=== PATIENT | male | born 1935 | race Caucasian/White ===

== ENCOUNTER 2019-08-02 12:13 | Emergency (ER) | payer MEDICARE ==
[~2019-08-02] VITALS: Ht 175.3 cm; Wt 93.0 kg
[~2019-08-02 12:13] MED LIST: ASCO500 PO; ASPI325 PO; CHOL10002 PO; CINNAMON 500MG PO; CINNAMON PO; CLOP75 PO; FLAX PO; GARLIC PO; GRAPESEED PO; HYDACE5 PO; METO25 PO; MOM PO; MULVIT PO; NIAC500ER PO; Norco 5-325 Ta1 EACH PO; OMEG1CAP30 PO; POTASSIUM 99MG PO; PROBIOTIC PO; RED YEAST RICE 600MG PO; SIMV10 PO; SOY LECITHIN PO; STOOL SOFTENER PO; TOCO400 PO; UBID100 PO; VITAMIN B 50 PO; [UNRECOGNIZED DRUG - OTHER]; [UNRECOGNIZED DRUG - OTHER] PO
[2019-08-02 13:55] LABS: BASOPHILS ABSOLUTE AUTO 0.06 K/mm3 (0.00-0.23); BASOPHILS PERCENT AUTO 1 % (0-2); EOSINOPHILS ABSOLUTE AUTO 0.15 K/mm3 (0.00-0.68); EOSINOPHILS PERCENT AUTO 2 % (0-6); Hematocrit 46.4 % (37.0-53.0); IMMATURE GRAN ABSOLUTE AUTO 0.03 K/mm3 (0.00-0.10); IMMATURE GRAN PERCENT AUTO 0 % (0-1); LYMPHOCYTES ABSOLUTE AUTO 1.72 K/mm3 (0.84-5.20); LYMPHOCYTES PERCENT AUTO 21 % (21-46); MONOCYTES ABSOLUTE AUTO 0.91 K/mm3 (0.16-1.47); MONOCYTES PERCENT AUTO 11 % (4-13); Mean Corpuscular HGB 28.7 pg (26.0-34.0); Mean Corpuscular HGB Conc 32.3 g/dL (31.5-36.5); Mean Corpuscular Volume 89 fL (80-100); Mean Platelet Volume 9.1 fL (9.1-12.4); NEUTROPHILS PERCENT AUTO 65 % (41-73); Platelet Count 249 K/mm3 (150-400); RDW Coefficient Variation 13.7 % (11.7-14.2); RDW Standard Deviation 44.6 fL (35.1-46.3); Red Blood Cell Count 5.22 M/mm3 (4.30-5.90); White Blood Cell Count 8.17 K/mm3 (4.00-11.30)
[2019-08-02 14:18] LABS: Alanine Aminotransfer (ALT/SGP 55 U/L (12-78); Albumin, Blood 3.6 g/dL (3.4-5.0); Albumin/Globulin Ratio 0.9 (0.8-1.8); Alk Phos 70 U/L (50-136); Anion Gap 5 mmol/L (6-16); Aspartate Aminotrans (AST/SGOT 49 U/L (12-37); Bilirubin, Total 0.5 mg/dL (0.1-1.0); Blood Urea Nitrogen 20 mg/dL (8-24); Bun/Creatinine Ratio 21.9 (12.0-20.0); CO2, Blood 27 mmol/L (21-32); Calcium, Blood 9.1 mg/dL (8.5-10.1); Chloride, Blood 105 mmol/L (98-108); Creatinine, Blood 0.91 mg/dL (0.60-1.20); Globulin, Blood 4.1 g/dL (2.2-4.0); Glomerular Filtration Rate >60 (60-); Glucose, Blood 83 mg/dL (70-99); Potassium, Blood 4.6 mmol/L (3.5-5.5); Sodium, Blood 137 mmol/L (136-145); Total Protein, Blood 7.7 g/dL (6.4-8.2); Troponin I <0.015 ng/mL (0.000-0.040)
[2019-08-02 15:13] LABS: Source, Urine Clean Catch
[2019-08-02 15:16] LABS: Bilirubin, Urine Neg (Neg); Blood, Urine Neg (Neg); Glucose Qualitative, Urine Neg (Neg); Ketones, Urine Neg (Neg); Leukocyte Esterase, Urine Neg (Neg); Nitrite, Urine Neg (Neg); Protein, Urine Neg (Neg); Specific Gravity, Urine 1.015 (1.003-1.022); Urobilinogen, Urine NORM (Normal)
[2019-08-02 15:28] LABS: Appearance, Urine Clear (Clear); Color, Urine Yellow (P-Yellow)
== END 2019-08-02 15:44 | disposition home or self-care (01) ==
LOC: ER 12:13
PROVIDERS: Physician Assistant
DX: I95.9 Hypotension, unspecified (principal); M25.551 Pain in right hip; F03.90 Unspecified dementia, unspecified severity, without behavioral disturbance, psychotic disturbance, mood disturbance, and anxiety; Z96.641 Presence of right artificial hip joint
CPT/HCPCS: 36415; 73502; 80053; 81003; 84484; 85025; 93005; 93010; 99285-25

== ENCOUNTER 2019-12-06 19:21 | Inpatient (IN) | payer MEDICARE ==
[~2019-12-06] VITALS: Ht 175.3 cm; Wt 97.3 kg
[~2019-12-06 19:21] MED LIST changes: -ASPI325 PO; +Aspir 8181 MG PO
[2019-12-06 20:51] LABS: BASOPHILS ABSOLUTE AUTO 0.05 K/mm3 (0.00-0.23); BASOPHILS PERCENT AUTO 0 % (0-2); EOSINOPHILS PERCENT AUTO 0 % (0-6); Hematocrit 48.6 % (37.0-53.0); Hemoglobin 16.1 g/dL (13.5-17.5); IMMATURE GRAN ABSOLUTE AUTO 0.07 K/mm3 (0.00-0.10); IMMATURE GRAN PERCENT AUTO 0 % (0-1); LYMPHOCYTES ABSOLUTE AUTO 1.65 K/mm3 (0.84-5.20); LYMPHOCYTES PERCENT AUTO 9 % (21-46); MONOCYTES ABSOLUTE AUTO 2.17 K/mm3 (0.16-1.47); MONOCYTES PERCENT AUTO 12 % (4-13); Mean Corpuscular HGB 28.9 pg (26.0-34.0); Mean Corpuscular HGB Conc 33.1 g/dL (31.5-36.5); Mean Corpuscular Volume 87 fL (80-100); Mean Platelet Volume 9.3 fL (9.1-12.4); NEUTROPHILS ABSOLUTE AUTO 13.83 K/mm3 (1.96-9.15); NEUTROPHILS PERCENT AUTO 78 % (41-73); Platelet Count 225 K/mm3 (150-400); RDW Coefficient Variation 13.4 % (11.7-14.2); RDW Standard Deviation 43.2 fL (35.1-46.3); Red Blood Cell Count 5.57 M/mm3 (4.30-5.90); White Blood Cell Count 17.77 K/mm3 (4.00-11.30)
[2019-12-06 21:09] LABS: Alanine Aminotransfer (ALT/SGP 109 U/L (12-78); Albumin, Blood 3.5 g/dL (3.4-5.0); Albumin/Globulin Ratio 0.8 (0.8-1.8); Alk Phos 86 U/L (50-136); Anion Gap 8 mmol/L (6-16); Aspartate Aminotrans (AST/SGOT 47 U/L (12-37); Bilirubin, Total 0.9 mg/dL (0.1-1.0); Blood Urea Nitrogen 17 mg/dL (8-24); Bun/Creatinine Ratio 21.4 (12.0-20.0); CO2, Blood 24 mmol/L (21-32); Calcium, Blood 9.5 mg/dL (8.5-10.1); Chloride, Blood 106 mmol/L (98-108); Creatinine, Blood 0.79 mg/dL (0.60-1.20); Globulin, Blood 4.2 g/dL (2.2-4.0); Glomerular Filtration Rate >60 (60-); Glucose, Blood 147 mg/dL (70-99); Potassium, Blood 4.3 mmol/L (3.5-5.5); Sodium, Blood 138 mmol/L (136-145); Total Protein, Blood 7.7 g/dL (6.4-8.2); Troponin I <0.015 ng/mL (0.000-0.040)
[2019-12-06 23:17] LABS: Source, Urine Clean Catch
[2019-12-06 23:22] LABS: Bilirubin, Urine Neg (Neg); Blood, Urine Neg (Neg); Glucose Qualitative, Urine 2+ (Neg); Ketones, Urine 1+ (Neg); Leukocyte Esterase, Urine 1+ (Neg); Nitrite, Urine Neg (Neg); Protein, Urine 2+ (Neg); Urobilinogen, Urine 1+ (Normal)
[2019-12-06 23:27] LABS: Appearance, Urine Clear (Clear); Color, Urine Amber (P-Yellow)
[2019-12-06 23:40] LABS: Bacteria Few /hpf; Mucus Mod (0-Heavy); Squamous Epithelial Cells Few /hpf (Few)
[2019-12-07 00:20] LABS: International Normalized Ratio 0.97; Prothrombin Time Results 10.4 Sec (9.7-11.5)
[2019-12-07 05:10] LABS: BASOPHILS ABSOLUTE AUTO 0.05 K/mm3 (0.00-0.23); BASOPHILS PERCENT AUTO 0 % (0-2); EOSINOPHILS PERCENT AUTO 0 % (0-6); Hematocrit 44.4 % (37.0-53.0); Hemoglobin 14.7 g/dL (13.5-17.5); IMMATURE GRAN ABSOLUTE AUTO 0.05 K/mm3 (0.00-0.10); IMMATURE GRAN PERCENT AUTO 0 % (0-1); LYMPHOCYTES ABSOLUTE AUTO 1.97 K/mm3 (0.84-5.20); LYMPHOCYTES PERCENT AUTO 12 % (21-46); MONOCYTES ABSOLUTE AUTO 2.04 K/mm3 (0.16-1.47); MONOCYTES PERCENT AUTO 12 % (4-13); Mean Corpuscular HGB 28.7 pg (26.0-34.0); Mean Corpuscular HGB Conc 33.1 g/dL (31.5-36.5); Mean Corpuscular Volume 87 fL (80-100); Mean Platelet Volume 9.3 fL (9.1-12.4); NEUTROPHILS ABSOLUTE AUTO 12.53 K/mm3 (1.96-9.15); NEUTROPHILS PERCENT AUTO 75 % (41-73); Platelet Count 199 K/mm3 (150-400); RDW Coefficient Variation 13.3 % (11.7-14.2); Red Blood Cell Count 5.12 M/mm3 (4.30-5.90); White Blood Cell Count 16.64 K/mm3 (4.00-11.30)
--- NOTE | 2019-12-07 05:20 | NUR ---
SHIFT SUMMARY PT ARRIVED TO UNIT FROM ED VIA STRETCHER @ 0300. PT TRANSFERRED 2 PERSON ASSIST TO STANDING SCALE THEN TO BED WITH NEEDED DIRECTION. PT'S IS AT BEDSIDE. PT IS A&O TO SELF. ONCE IN BED PT SLEPT, WHILE HELPED ANSWER QUESTIONS DURING ADMISSION PROCESS. PT IS CURRENTLY LAYING IN BED WITH EYES CLOSED, EVEN AND UNLABORED RESPIRATIONS ON 3.5 L NC. BED IN LOWERED POSITION WITH BED ALARM ON. PT'S IS IN RECLINER NEXT TO BED, WITH CALL LIGHT AND PERSONAL ITEMS WITHIN REACH. NO APPARENT NEEDS OR DISTRESS AT THIS TIME, WILL CONTINUE TO MONITOR UNTIL REPORT GIVEN TO DAY RN.
[2019-12-07 05:29] LABS: Alanine Aminotransfer (ALT/SGP 90 U/L (12-78); Albumin, Blood 2.8 g/dL (3.4-5.0); Albumin/Globulin Ratio 0.8 (0.8-1.8); Alk Phos 74 U/L (50-136); Anion Gap 6 mmol/L (6-16); Aspartate Aminotrans (AST/SGOT 51 U/L (12-37); Bilirubin, Total 1.1 mg/dL (0.1-1.0); Blood Urea Nitrogen 15 mg/dL (8-24); CO2, Blood 25 mmol/L (21-32); Calcium, Blood 8.5 mg/dL (8.5-10.1); Chloride, Blood 108 mmol/L (98-108); Creatinine, Blood 0.71 mg/dL (0.60-1.20); Globulin, Blood 3.6 g/dL (2.2-4.0); Glomerular Filtration Rate >60 (60-); Glucose, Blood 132 mg/dL (70-99); Sodium, Blood 139 mmol/L (136-145); Total Protein, Blood 6.4 g/dL (6.4-8.2)
--- NOTE | 2019-12-07 13:24 | NUR ---
History, Chart, Medications and Allergies reviewed before start of procedure. Patient confirms NPO status and agrees with scheduled surgery.Transport to Day surgery using 3L O2/NC, which was what the patinet was on in his room. biox 97%.
--- NOTE | 2019-12-07 14:00 | NUR ---
1350- AUDITORY WHEEZING NOTED WELL EXP. WHEEZING AUSCULTATED THROUGHOUT LUNGS. DUONEB TO BE GIVEN PER DR. FOLEY.
--- NOTE | 2019-12-07 14:18 | NUR ---
TOOK OVER PATIENT CARE AFTER REPORT WAS RECEIVED.
--- NOTE | 2019-12-07 19:00 | NUR ---
ASSUMED PT CARE BEDSIDE REPORT WITH CHANDANA OSPINA. PT TO ROOM FROM PACU AT 1850. PT CONFUSED, NOT COOPERATIVE WITH CARE, PULLING AT LINES/DRAINS/TUBING/DRESSINGS. PT ARRIVES ON NRB AT 15L, SWITCHED TO 7L PER OXYMIZER, PT SEEMED TO SETTLE SOME. PT ARRIVES WITH BED SOAKED IN URINE. PT ROLLED SIDE TO SIDE, PT CLEANED AND NEW LINENS PLACED. TEMP PROBE RILEY PLACED FOR STRICT I&O COUNT PLACED (PT TO BE DIURESED). PT HAS 20G TO RIGHT FA. DRESSING C/D/I, SITE WNL. LAP SITES TO ABD WITH STERI STRIPS NOTED, SMALL AMOUNT OF DRAINAGE NOTED. RAFFI DRAIN TO RIGHT ABD, BULB COMPRESSED. BULKY DRESSING TO DRAIN SITE. PT MOVES ALL EXT FREELY. LUNG SOUNDS COARSE THROUGHOUT. BP STABLE. BED ALARM ON, BED LOW, CALL LIGHT IN REACH. SEE FULL SHIFT ASSESSMENT.
[2019-12-08 03:05] LABS: Source, Urine Catheter
[2019-12-08 03:07] LABS: Appearance, Urine Clear (Clear); Bilirubin, Urine Neg (Neg); Blood, Urine 4+ (Neg); Color, Urine Amber (P-Yellow); Glucose Qualitative, Urine Neg (Neg); Ketones, Urine Neg (Neg); Leukocyte Esterase, Urine Neg (Neg); Nitrite, Urine Neg (Neg); Protein, Urine 2+ (Neg); Urobilinogen, Urine 1+ (Normal)
[2019-12-08 03:13] LABS: Bacteria Mod /hpf; Mucus Light (0-Heavy); Squamous Epithelial Cells Not Seen /hpf (Few)
--- NOTE | 2019-12-08 06:10 | NUR ---
SHIFT SUMMARY PT HAD DECENT SHIFT. CAME TO ICU FROM PACU CONFUSED AND AGITATED ON 15L NRB. PT REQUIRED RESTRAINTS FOR A FEW HRS. MENTATION CLEARED AROUND MIDNIGHT. PT ALERT TO SELF, NOW COOPERATIVE AND PLEASANT. PT HAS NEW 18G TO LEFT AC WITH NS INFUSING AT 100ML/HR. SL 20G TO RIGHT FA. DRESSINGS C/D/I, SITES TO BOTH IVS WNL. PT POST OP DAY 1 LAP AUGUSTO, LAP SITES HAVE STERI STRIPS INTACT, SCANT DRAINAGE NOTED. PT HAS RAFFI DRAIN TO RIGHT ABD WITH BULKY DRESSING IN PLACE. SMALL AMOUNT OF DRAINAGE TO DRESSING. BULB COMPRESSED. BRUISING TO ABD. ABD DISTENDED AND FIRM, BOWEL TONES HYPOACTIVE. TEMP PROBE RILEY DRAINING CLEAR NICOLA URINE. LUNG SOUNDS TO UPPER LOBES CLEAR. COARSE TO BASES. PT ON 5L O2 PER OXYMIZER, MEETA WELL. PT ABLE TO COUGH AND DEEP BREATHE. PT NOW AFEBRILE. DISCUSSED TEMP OF 100.6 AND LACK OF LAB ORDERS WITH PROVIDER. NO ORDERS RECEIVED UNLESS TEMP REACHED 101. TEMP MAX 100.9. HR SR 80'S, BP STABLE. PT ABLE TO MOVE ALL EXTREMITIES. CALL LIGHT IN REACH. BED LOW. WILL REPORT TO ONCOMING SHIFT.
--- NOTE | 2019-12-08 07:30 | NUR ---
ASSUMED CARE: REPORT RECEIVED FROM JOELLE Flowers RN. ASSUMED CARE OF THIS PT AT APPROX 0700. ON ASSESSMENT, THE PT IS RESTING QUIETLY. HE AWAKENS EASILY TO VERBAL STIMULUS & IS ABLE TO TELL THIS RN HIS NAME, & THAT WE ARE IN [place], OR. PER REPORT, THIS IS AN IMPROVEMENT IN MENTATION. THE PT WAS REMOVED FROM RESTRAINTS AT APPROX 0000 & IS CURRENTLY COOPERATIVE W/ CARE, NOT PULLING AT ANY LINES OR TUBES. LS ARE DIM/ COARSE IN BASES, PT ON 4L OXYMIZER AT THIS TIME W/ O2 SATS > 92%. TITRATION DOWN TOLERATED, DOES NOT WEAR HOME O2. MONITOR SHOWS SR W/ PACs & PVCs, HR 70-80s. TEMP RILEY PATENT/ DRAINING DARK YELLOW URINE. ABDOMEN W/ LAP SITES x3, STERI STRIPS INTACT. RAFFI DRAIN TO RLQ. ABDOMEN IS DISTENDED, FIRM & TENDER TO PALPATION, PER REPORT THIS IS UNCHANGED SINCE PT's RETURN FROM THE OR. PT STS HAVING A "ROUND" BELLY AT BASELINE. SKIN CONDITION OVERALL CDI, SOME BRUISING NOTED SURROUNDING SURGICAL SITES. WILL CONTINUE TO MONITOR & UPDATE NEEDED.
--- NOTE | 2019-12-08 09:40 | NUR ---
UPDATE / DR TIAN: PT IS INCREASINGLY CONFUSED & AGITATED, ASKING FOR JARED, HIS . HE IS NOW PARANOID OF STAFF & INSISTS THAT ALL STAFF MEMBERS ARE "PHONY" & ARE TRYING TO HURT/ KILL HIM. THIS RN HAS CALLED JARED TO SEE IF SHE WILL BE COMING TO SEE THE PT, PER HIS REQUEST. SHE IS LEAVING THEIR HOME IN [place] & WILL BE AT THE FACILITY SOON. PROVIDER AT BEDSIDE TO EVAL PT. JARED, PT's SPOUSE, AT BEDSIDE DURING THIS TIME WELL. SHE HAS ORDERED LABWORK & A CXR FOR THIS MORNING. THERE IS CONVERSATION FROM THE PT's ABOUT A POSSIBLE COBRA TX TO [facility] FOR ERCP PER DR JUNIOR. DR GILMORE STS THAT IF THIS WILL NOT BE HAPPENING TODAY, THAT THE PT MAY BE SURGICAL STATUS. WILL GET CLARIFICATION ON THIS FROM DR JUNIOR.
[2019-12-08 10:14] LABS: BASOPHILS ABSOLUTE AUTO 0.02 K/mm3 (0.00-0.23); BASOPHILS PERCENT AUTO 0 % (0-2); EOSINOPHILS PERCENT AUTO 0 % (0-6); Hematocrit 43.9 % (37.0-53.0); Hemoglobin 14.5 g/dL (13.5-17.5); IMMATURE GRAN ABSOLUTE AUTO 0.04 K/mm3 (0.00-0.10); IMMATURE GRAN PERCENT AUTO 0 % (0-1); LYMPHOCYTES ABSOLUTE AUTO 1.53 K/mm3 (0.84-5.20); LYMPHOCYTES PERCENT AUTO 10 % (21-46); MONOCYTES ABSOLUTE AUTO 1.69 K/mm3 (0.16-1.47); MONOCYTES PERCENT AUTO 11 % (4-13); Mean Corpuscular HGB 28.9 pg (26.0-34.0); Mean Corpuscular Volume 88 fL (80-100); Mean Platelet Volume 9.2 fL (9.1-12.4); NEUTROPHILS ABSOLUTE AUTO 11.76 K/mm3 (1.96-9.15); NEUTROPHILS PERCENT AUTO 78 % (41-73); Platelet Count 181 K/mm3 (150-400); RDW Coefficient Variation 13.6 % (11.7-14.2); RDW Standard Deviation 43.7 fL (35.1-46.3); Red Blood Cell Count 5.01 M/mm3 (4.30-5.90); White Blood Cell Count 15.04 K/mm3 (4.00-11.30)
[2019-12-08 10:29] LABS: Alanine Aminotransfer (ALT/SGP 86 U/L (12-78); Albumin, Blood 2.5 g/dL (3.4-5.0); Albumin/Globulin Ratio 0.7 (0.8-1.8); Alk Phos 66 U/L (50-136); Anion Gap 5 mmol/L (6-16); Aspartate Aminotrans (AST/SGOT 51 U/L (12-37); Bilirubin, Total 0.7 mg/dL (0.1-1.0); Blood Urea Nitrogen 15 mg/dL (8-24); Bun/Creatinine Ratio 21.4 (12.0-20.0); CO2, Blood 27 mmol/L (21-32); Chloride, Blood 108 mmol/L (98-108); Globulin, Blood 3.6 g/dL (2.2-4.0); Glomerular Filtration Rate >60 (60-); Glucose, Blood 125 mg/dL (70-99); Potassium, Blood 4.2 mmol/L (3.5-5.5); Sodium, Blood 140 mmol/L (136-145); Total Protein, Blood 6.1 g/dL (6.4-8.2)
--- NOTE | 2019-12-08 13:28 | NUR ---
DR JUNIOR: PROVIDER AT BEDSIDE TO DISCUSS POC W/ PT & PT's . PLAN IS FOR COBRA TX TO [facility] FOR ERCP. HE HAS PLACED A CALL TO GI AT THAT FACILITY & IS AWAITING RETURN CALL. IF THE PT CANNOT BE TRANSFERRED TODAY, THEN HE CAN BE MADE SURGICAL STATUS & BE GIVEN CLEAR LIQUIDS. OTHERWISE, THE PT SHOULD BE ALLOWED ONLY MOIST SWABS & REMAIN NPO UNTIL DETERMINATION HAS BEEN MADE. PROVIDER STS THAT HE WILL CALL & UPDATE THIS RN ONCE HE KNOWS MORE.
--- NOTE | 2019-12-08 15:45 | NUR ---
UPDATE: CALL FROM DR JUNIOR TO NOTIFY THIS RN THAT THE PT HAS AN ACCEPTING HOSPITALIST PROVIDER. PLAN IS FOR THE COBRA TX TO OCCUR TODAY & ERCP TO OCCUR TOMORROW. BECAUSE OF THIS, THE PT IS OKAY TO HAVE CLEAR LIQUIDS AT THIS TIME. ORDERS PLACED.
--- NOTE | 2019-12-08 15:47 | NUR ---
BED ASSIGNMENT: [facility] HAS CALLED TO NOTIFY THAT PT's BED ASSIGNMENT IS RM #[id number] AT [facility]. REPORT SHOULD BE CALLED TO ANAI JOE, WHEN ABLE
--- NOTE | 2019-12-08 18:13 | NUR ---
COBRA TRANSFER: REPORT HAS BEEN CALLED TO ANAI JOE TO ASSUME CARE AT [facility] AT APPROX 1700. TRANSPORT HAS BEEN CONTACTED, THEY PLANNED TO ARRIVE AT 1645 & HAD NOT YET ARRIVED AT TIME OF REPORT. THEY STATE THAT TRANSPORT HAS BEEN DELAYED R/T EMERGENCY CALLS BUT THAT THEY WILL ARRIVE RIKA. THIS INFORMATION HAS BEEN SHARED W/ JARED Eng, THE PT's SPOUSE. TRANSPORT HAS ARRIVED AT 1740 & THE PT HAS BEEN TAKEN OUT VIA [facility], W/ ALL BELONGINGS & TRANSPORT PACKET. PT OUT OF FACILITY AT 1750. THIS RN HAS CALLED JARED, SPOUSE, & ANAI JOE TO ASSUME CARE, TO UPDATE ON PT's TIME OF DEPARTURE.
== END 2019-12-08 17:50 | disposition short-term general hospital (02) | DRG 417 ==
LOC: ER 19:21 → MEDS 19:22 → ER 12-07 02:50 → MEDS 12-07 03:30 → SURS 12-07 16:25 → ICUW 12-07 18:23
PROVIDERS: Emergency Medicine; Hospitalist; Nurse Practitioner Acute Care; Surgery; ADMIT Family Medicine
PROC: BF131ZZ Fluoroscopy of Gallbladder and Bile Ducts using Low Osmolar Contrast (ICD-10-PCS; 2019-12-07)
PROC: 0FT44ZZ Resection of Gallbladder, Percutaneous Endoscopic Approach (ICD-10-PCS; principal; 2019-12-07 14:30)
DX: K80.00 Calculus of gallbladder with acute cholecystitis without obstruction (principal); I60.9 Nontraumatic subarachnoid hemorrhage, unspecified; J96.01 Acute respiratory failure with hypoxia; I25.10 Atherosclerotic heart disease of native coronary artery without angina pectoris; J44.9 Chronic obstructive pulmonary disease, unspecified; F17.210 Nicotine dependence, cigarettes, uncomplicated; G30.9 Alzheimer's disease, unspecified; F02.80 Dementia in other diseases classified elsewhere, unspecified severity, without behavioral disturbance, psychotic disturbance, mood disturbance, and anxiety; Z79.82 Long term (current) use of aspirin; Z20.828 Contact with and (suspected) exposure to other viral communicable diseases
CPT/HCPCS: 36415; 70450; 71045; 74300; 76705; 80053; 81001; 83690; 84484; 85025; 85610; 85730; 87086; 93005; 93010; 94640; 96365; 96366; 96368; 97166; 97530; 97535; 99285-25; C1729; G0378; J0696; J1100; J1940; J2370; J2405; J2543; J2704; J2710; J3010; J7030; J7120; U0003

== ENCOUNTER → 2021-06-23 | Outpatient (CLI) | payer MEDICARE | END | disposition home or self-care (01) | LOC: LAB 11:10 → LAB SHORT 11:10 | DX: R82.79 Other abnormal findings on microbiological examination of urine (principal) | CPT/HCPCS: 87086 ==

== ENCOUNTER 2021-09-19 12:23 | Emergency (ER) | payer MEDICARE ==
[~2021-09-19] VITALS: Ht 177.8 cm; Wt 95.2 kg
[~2021-09-19 12:23] MED LIST changes: +CEPH500 PO; +DONEPEZIL HCL10 MG PO; +LEVSOD25 PO
== END 2021-09-19 16:43 | disposition home or self-care (01) ==
LOC: ER 12:23
DX: Z48.815 Encounter for surgical aftercare following surgery on the digestive system (principal); F17.200 Nicotine dependence, unspecified, uncomplicated; Z79.899 Other long term (current) drug therapy; Z79.82 Long term (current) use of aspirin
CPT/HCPCS: 74177; Q9967

== ENCOUNTER 2023-01-25 03:55 | Inpatient (IN) | payer OTHER ==
[~2023-01-25] VITALS: Ht 185.4 cm; Wt 93.0 kg
[~2023-01-25 03:55] MED LIST changes: +Acetaminophen650 M1 PO; +FLONASE ALLERG9.9 ML; +ROSUVASTATIN CAL5 MG PO
[2023-01-25 04:27] LABS: BASOPHILS ABSOLUTE AUTO 0.04 K/mm3 (0.00-0.23); BASOPHILS PERCENT AUTO 0 % (0-2); EOSINOPHILS PERCENT AUTO 0 % (0-6); Hematocrit 44.8 % (37.0-53.0); Hemoglobin 14.8 g/dL (13.5-17.5); IMMATURE GRAN ABSOLUTE AUTO 0.05 K/mm3 (0.00-0.10); IMMATURE GRAN PERCENT AUTO 0 % (0-1); LYMPHOCYTES ABSOLUTE AUTO 1.59 K/mm3 (0.84-5.20); LYMPHOCYTES PERCENT AUTO 10 % (21-46); MONOCYTES ABSOLUTE AUTO 1.19 K/mm3 (0.16-1.47); MONOCYTES PERCENT AUTO 7 % (4-13); Mean Corpuscular HGB 29.5 pg (26.0-34.0); Mean Corpuscular Volume 89 fL (80-100); Mean Platelet Volume 9.7 fL (9.1-12.4); NEUTROPHILS ABSOLUTE AUTO 13.81 K/mm3 (1.96-9.15); NEUTROPHILS PERCENT AUTO 83 % (41-73); Platelet Count 178 K/mm3 (150-400); RDW Coefficient Variation 13.2 % (11.7-14.2); Red Blood Cell Count 5.02 M/mm3 (4.30-5.90); White Blood Cell Count 16.68 K/mm3 (4.00-11.30)
[2023-01-25 04:47] LABS: Albumin, Blood 3.1 g/dL (3.4-5.0); Bilirubin, Total 0.5 mg/dL (0.1-1.0); Bun/Creatinine Ratio 33.1 (12.0-20.0); Calcium, Blood 8.1 mg/dL (8.5-10.1); Creatinine, Blood 0.88 mg/dL (0.60-1.20); Globulin, Blood 3.2 g/dL (2.2-4.0); Potassium, Blood 4.3 mmol/L (3.5-5.5); Total Protein, Blood 6.3 g/dL (6.4-8.2)
[2023-01-25] MEDS ORDERED: MELA3 PO (05:13)
[2023-01-25] MEDS ORDERED: Norco 5-325 Ta1 EACH PO (05:13)
[2023-01-25 05:33] LABS: Source, Urine Straight Cath
[2023-01-25 05:52] LABS: Bilirubin, Urine Neg (Neg); Blood, Urine Neg (Neg); Glucose Qualitative, Urine Neg (Neg); Ketones, Urine 1+ (Neg); Leukocyte Esterase, Urine 1+ (Neg); Nitrite, Urine Neg (Neg); Protein, Urine 2+ (Neg); Specific Gravity, Urine 1.025 (1.003-1.022); Urobilinogen, Urine NORM (Normal)
[2023-01-25 06:12] LABS: Influenza A, PCR NEGATIVE (NEGATIVE); Influenza B, PCR NEGATIVE (NEGATIVE); Resp Syncytial Virus, PCR NEGATIVE (NEGATIVE); SARS-Cov-2 (COVID-19) PCR, MMC NEGATIVE (NEGATIVE)
[2023-01-25 06:15] LABS: Appearance, Urine Hazy (Clear); Color, Urine Yellow (P-Yellow)
[2023-01-25 06:17] LABS: Bacteria Rare /hpf; Red Blood Cells, Urine Not Seen /hpf (0-2); Squamous Epithelial Cells Not Seen /hpf (Few)
[2023-01-25 08:39] VITALS: BP 129/64
[2023-01-25] MEDS ORDERED: [UNRECOGNIZED DRUG - CODE] PO (10:06)
[2023-01-25] MEDS ORDERED: Alph-E-Mixed400 UNIT (10:06)
[2023-01-25] MEDS ORDERED: ONE DAILY MUL400 MCG PO (10:07)
[2023-01-25] MEDS ORDERED: MAGNESIUM OXID500 MG PO (10:08)
[2023-01-25] MEDS ORDERED: ERGO400 PO (10:08)
[2023-01-25] MEDS ORDERED: POTA10T PO (10:09)
[2023-01-25] MEDS ORDERED: FLAX PO (10:10)
[2023-01-25 10:17] LABS: Adenovirus F 40/41 Not Detected (NOT DETECT); Astrovirus Not Detected (NOT DETECT); Campylobacter Sp Not Detected (NOT DETECT); Cryptosporidium Not Detected (NOT DETECT); Cyclospora Cayetanensis Not Detected (NOT DETECT); E. Coli O157 Not Detected (NOT DETECT); Entamoeba Histolytica Not Detected (NOT DETECT); Enteroaggregative E. coli-EAEC Not Detected (NOT DETECT); Enteropathogenic E. coli-EPEC Not Detected (NOT DETECT); Enterotoxigenic E. coli-ETEC Not Detected (NOT DETECT); Giardia Lamblia Not Detected (NOT DETECT); Norovirus GI/GII Detected (NOT DETECT); Plesiomonas Shigelloides Not Detected (NOT DETECT); Salmonella Sp Not Detected (NOT DETECT); Shiga Toxin-prod E. coli-STEC Not Detected (NOT DETECT); Shigella/Enteroin E. coli-EIEC Not Detected (NOT DETECT); Vibrio Cholerae Not Detected (NOT DETECT); Vibrio Sp Not Detected (NOT DETECT); Yersinia Enterocolitica Not Detected (NOT DETECT)
[2023-01-25 10:18] LABS: Rotavirus A Not Detected (NOT DETECT); Sapovirus Not Detected (NOT DETECT)
[2023-01-25 15:27] VITALS: BP 114/64
--- NOTE | 2023-01-25 18:42 | NUR ---
SHIFT SUMMARY 0830 RECEIVED PT TO RM 360 [employer]IA [employer] FROM ER. SLIDE TX TO BED. PT ADMITTED FOR METABOLIC ENCEPHALOPATHY. INCONTINENT OF BOWEL AND BLADDER UPON ARRIVAL. LIQUID BLOODY STOOL NOTED. PT CONTINUED TO HAVE BLOODY DIARRHEA THRU OUT THE DAY UNTIL PRESENT. PT NOT WANTING TO EAT TODAY. MOSTLY SLEPT ALL DAY UNTIL THIS EVENING, BUT STILL DOES NOT WANT TO EAT. PT WANTED WATER, BUT DID NOT REMEMBER HOW TO DRINK OR SWALLOW. DR AGUILAR NOTIFIED. SP JAZMINE ORDERED FOR AM. IVF'S TO BE STARTED WELL. PT'S UPDATED SEVERAL TIMES. BOTH LIVING AT [facility]. REPORTED PT WAS AMBULATING TO DINING LO AND ABLE TO VISIT WITH RESIDENTS. PT IS CURRENTLY VERY CONFUSED AND SPEECH DOES NOT MAKE SENSE. PT POSITIVE FOR NORO VIRUS. BED ALARM ON FOR SAFETY. CALL LT IN REACH.
[2023-01-25 19:54] LABS: Hematocrit 43.5 % (37.0-53.0); Hemoglobin 14.7 g/dL (13.5-17.5)
[2023-01-25 21:20] VITALS: BP 101/71
[2023-01-25 23:00] VITALS: BP 99/67
[2023-01-25 23:17] VITALS: BP 92/55
[2023-01-25 23:40] VITALS: BP 102/55
--- NOTE | 2023-01-26 01:35 | NUR ---
WHEN GETTING EVENING VITALS PT HR WAS FLUCTUATING FROM 60-120'S. HARNESS BRUSHER PROVIDER NOTIFIED AND TELEMETRY ORDERED. PT WAS IN A-FIB ON TELE, NO NOTED HISOTRY. HARNESS BRUSHER PROVIDER DR. ESTRADA NOTIFIED AND ORDERED 2.5 MG OF METOPROLOL X1 AND TO MONITOR PT'S B/P IT WAS SOFT PRIOR TO CAP CUTTER. METOROPROLOL GIVEN, B/P MAINTAINED AND PT CONVERTED TO SINUS RHYTHM AT 2342. PT IS STILL SINUS RHYTHM AT 0130 WITH SVPB'S.
[2023-01-26 03:38] VITALS: BP 127/89
[2023-01-26 04:25] LABS: Hematocrit 42.8 % (37.0-53.0); Hemoglobin 14.4 g/dL (13.5-17.5); Mean Corpuscular HGB 29.3 pg (26.0-34.0); Mean Corpuscular HGB Conc 33.6 g/dL (31.5-36.5); Mean Corpuscular Volume 87 fL (80-100); Mean Platelet Volume 9.2 fL (9.1-12.4); Platelet Count 158 K/mm3 (150-400); RDW Coefficient Variation 13.2 % (11.7-14.2); RDW Standard Deviation 42.4 fL (35.1-46.3); Red Blood Cell Count 4.92 M/mm3 (4.30-5.90); White Blood Cell Count 16.89 K/mm3 (4.00-11.30)
[2023-01-26 04:52] LABS: Albumin, Blood 2.5 g/dL (3.4-5.0); Albumin/Globulin Ratio 0.8 (0.8-1.8); Bilirubin, Total 0.6 mg/dL (0.1-1.0); Bun/Creatinine Ratio 33.3 (12.0-20.0); Calcium, Blood 8.1 mg/dL (8.5-10.1); Creatinine, Blood 0.9 mg/dL (0.60-1.20); Globulin, Blood 3.1 g/dL (2.2-4.0); Potassium, Blood 3.9 mmol/L (3.5-5.5); Total Protein, Blood 5.6 g/dL (6.4-8.2)
[2023-01-26 05:04] LABS: BAND PERCENT MAN 11 % (0-8); BASOPHILS PERCENT MAN 0 % (0-2); EOSINOPHILS PERCENT MAN 0 % (0-6); LYMPHOCYTES ABSOLUTE MAN 2.36 K/mm3 (0.84-5.20); LYMPHOCYTES PERCENT MAN 14 % (21-46); MONOCYTES ABSOLUTE MAN 1.68 K/mm3 (0.16-1.47); MONOCYTES PERCENT MAN 10 % (4-13); NEUTROPHILS ABSOLUTE MAN 12.83 K/mm3 (1.96-9.15); SEG NEUTROPHILS PERCENT MAN 65 % (41-73); TOTAL CELLS COUNTED 100
[2023-01-26 07:55] VITALS: BP 114/90
[2023-01-26 16:18] VITALS: BP 121/67
--- NOTE | 2023-01-26 18:04 | NUR ---
SHIFT SUMMARY PT A&0 TO SELF AND PERSON THIS AM AND NOW A&OX4, CONTINUES TO BE MILDLY CONFUSED AT TIMES, BUT EASILY REORIENTABLE. PT AMB W/ 1-2 ASSIST TO CHAIR AND BESIDE COMMODE W/ GB THIS SHIFT AND WORKED W/ PHYSICAL THERAPY AND TOLERATED IT WELL. CONTINUES TO HAVE BLOODY STOOLS AND BE INCONTINENT/CONTINENT AT TIMES. SPEECH THERAPY EVALUATED AND UPGRADED TO PUREE DIET. SINUS RHYTHM ON TELE W/ NO EVENTS THIS SHIFT. D5NS RUNNING AT 75 MLS/HR. CALL LIGHT WITHIN REACH AND PT ABLE TO MAKE NEEDS KNOWN.
[2023-01-26 20:26] VITALS: BP 112/62
--- NOTE | 2023-01-27 04:23 | NUR ---
SHIFT SUMMARY PATIENT A/0x2-3, PLEASANTLY CONFUSED, EASY TO REORIENT. REQUIRES 1-2 ASSIST TO CHAIR/BSC. CONTINUES ON TELE, AFIB 80s FOR MOST OF SHIFT, CURRENTLY SR 60s. NO ACUTE CHANGES NOTED OVERNIGHT. CALL LIGHT WITHIN REACH.
[2023-01-27 04:39] VITALS: BP 125/71
[2023-01-27 04:47] LABS: Hematocrit 40.4 % (37.0-53.0); Hemoglobin 13.9 g/dL (13.5-17.5); Mean Corpuscular HGB 29.7 pg (26.0-34.0); Mean Corpuscular HGB Conc 34.4 g/dL (31.5-36.5); Mean Corpuscular Volume 86 fL (80-100); Mean Platelet Volume 9.5 fL (9.1-12.4); Platelet Count 168 K/mm3 (150-400); RDW Coefficient Variation 13.2 % (11.7-14.2); RDW Standard Deviation 41.4 fL (35.1-46.3); Red Blood Cell Count 4.68 M/mm3 (4.30-5.90); White Blood Cell Count 15.72 K/mm3 (4.00-11.30)
[2023-01-27 06:20] LABS: Bun/Creatinine Ratio 34.8 (12.0-20.0); Calcium, Blood 8.1 mg/dL (8.5-10.1); Creatinine, Blood 0.6 mg/dL (0.60-1.20); Potassium, Blood 3.9 mmol/L (3.5-5.5)
[2023-01-27 06:21] LABS: BAND PERCENT MAN 3 % (0-8); BASOPHILS PERCENT MAN 0 % (0-2); EOSINOPHILS PERCENT MAN 0 % (0-6); LYMPHOCYTES ABSOLUTE MAN 2.04 K/mm3 (0.84-5.20); LYMPHOCYTES PERCENT MAN 13 % (21-46); MONOCYTES ABSOLUTE MAN 0.94 K/mm3 (0.16-1.47); MONOCYTES PERCENT MAN 6 % (4-13); NEUTROPHILS ABSOLUTE MAN 12.73 K/mm3 (1.96-9.15); SEG NEUTROPHILS PERCENT MAN 78 % (41-73); TOTAL CELLS COUNTED 100
[2023-01-27 08:27] VITALS: BP 130/79
[2023-01-27 16:27] VITALS: BP 109/67
--- NOTE | 2023-01-27 18:03 | NUR ---
SHIFT SUMMARY PATIENT IS ALERT AND ORIENTED TO SELF ONLY. PATIENT HAS HAD NO ACUTE EVENTS THIS SHIFT. IV FLUIDS AND ABX INFUSED ORDERED. PATIENT HAS BEEN A 1X ASSIST TO COMMODE. PATIENT HAS BEEN IMPULSIVE THIS SHIFT. ON TELE WITH NO EVENTS. BED IN LOCKED AND LOWEST POSITION. CALL LIGHT IN PLACE WILL MONITOR UNTIL SHIFT CHANGE.
[2023-01-27 19:38] VITALS: BP 141/84
--- NOTE | 2023-01-27 22:31 | NUR ---
RECEIVED TELEPHONE CALL FROM [employer], THAT PT HAD AN 8 BEAT RUN OF [employer]. CHECKED WITH PT, PT DENIES ANY PAIN OR DISCOMFORT, PT STATES "I FEEL GREAT." PT IS ALERT TO PERSON, BIRTHDAY, YEAR, AND FOLLOWS COMMANDS. CALL LIGHT WITHIN REACH. PT REQUESTING ASSIST WITH URINATION - GIN CLERK CALLED FOR ASSIST.
[2023-01-28 02:43] VITALS: BP 147/83
--- NOTE | 2023-01-28 03:15 | NUR ---
PT ACCIDENTALLY DISLODGED HIS LEFT FA IV SITE - IV REMOVED - CATH INTACT. PT HAS A RIGHT WRIST IV SITE - FLUSHED AND RESTARTED IV MAINTENANCE FLUIDS.
--- NOTE | 2023-01-28 04:54 | NUR ---
1900: Assumed care of pt, report received from day shift RN. Pt is sitting up in the chair at this time. Fluids running as ordered to LFA PIV with no s/s of infection or infiltration. Oriented to self and year. VSS, medications provided with water. Pt tolerated well. Call from [employer] to ANAI Brown during shift with report 8 beat run of vtach. Pt has remained non symptomatic throughout the shift, no repeat of occurance reported. LFA piv came unattached and was d/pepito by Stephanie OSPINA during shift. Fluids moved to RFA PIV. Pt tolerating fluids well. Urine is concentrated yellow, pt is able to use the urinal. Denies pain during this shift. Needs addressed and safety measures taken.
[2023-01-28 05:25] LABS: BASOPHILS ABSOLUTE AUTO 0.06 K/mm3 (0.00-0.23); BASOPHILS PERCENT AUTO 0 % (0-2); EOSINOPHILS ABSOLUTE AUTO 0.24 K/mm3 (0.00-0.68); EOSINOPHILS PERCENT AUTO 2 % (0-6); Hematocrit 41.3 % (37.0-53.0); Hemoglobin 13.9 g/dL (13.5-17.5); IMMATURE GRAN ABSOLUTE AUTO 0.05 K/mm3 (0.00-0.10); IMMATURE GRAN PERCENT AUTO 0 % (0-1); LYMPHOCYTES ABSOLUTE AUTO 1.67 K/mm3 (0.84-5.20); LYMPHOCYTES PERCENT AUTO 12 % (21-46); MONOCYTES ABSOLUTE AUTO 1.06 K/mm3 (0.16-1.47); MONOCYTES PERCENT AUTO 8 % (4-13); Mean Corpuscular HGB Conc 33.7 g/dL (31.5-36.5); Mean Corpuscular Volume 86 fL (80-100); NEUTROPHILS ABSOLUTE AUTO 10.52 K/mm3 (1.96-9.15); NEUTROPHILS PERCENT AUTO 77 % (41-73); Platelet Count 187 K/mm3 (150-400); RDW Standard Deviation 40.7 fL (35.1-46.3)
[2023-01-28 05:58] LABS: Albumin, Blood 2.4 g/dL (3.4-5.0); Albumin/Globulin Ratio 0.7 (0.8-1.8); Bilirubin, Total 0.5 mg/dL (0.1-1.0); Bun/Creatinine Ratio 17.4 (12.0-20.0); Calcium, Blood 8.2 mg/dL (8.5-10.1); Creatinine, Blood 0.69 mg/dL (0.60-1.20); Globulin, Blood 3.3 g/dL (2.2-4.0); Potassium, Blood 3.8 mmol/L (3.5-5.5); Total Protein, Blood 5.7 g/dL (6.4-8.2)
[2023-01-28 07:38] VITALS: BP 140/76
[2023-01-28 14:42] VITALS: BP 102/74
--- NOTE | 2023-01-28 15:07 | NUR ---
PATIENT CONTINUED TO ESCILATE, NONDRIECTABLE, UNCONSOLABLE, MEDICATED WITH SEROQUEL. 1455 PATIENT BECAME AGGRESSIVE TOWARDS STAFF, SWINING HIS ARMS TO HIT STAFF, PATIENT ADIMIT TO WALK BUT UNABLE TO CONTROL FOOTING, JENNIFER PLACED. PATIENT RESTING NOW, NO S/S OF DISTRESS, NO GRIMACING, TO BE MOVED TO ROOM 350, A CALL IS OUT TO UPDATE DR CORTES
--- NOTE | 2023-01-28 15:20 | NUR ---
UPDATE REPORTED TO JARED APODACA () PATIENT TO BE TRANSFERED TO ROOM 350
--- NOTE | 2023-01-28 18:11 | NUR ---
SHIFT SUMMARY AT 1545 RECEIVED REPORT FROM RAUL OSPINA. 1642 PT TO ROOM 350 VIA BED TRANSFER. PT IN VEST RESTRAINT FOR COGNITIVE BEHAVIORS, CONFUSED & NOT REDIRECTABLE. [employer] CLEANED PT UP UPON ARRIVAL TO UNIT, MIKHAIL CARE & LINEN CHANGE. PT HAS RESTED COMFORTABLY & QUIETLY SINCE ARRIVING TO RM 350. RESP EVEN & UNLABORED. S/W PT'S TO GIVE UPDATE.
[2023-01-28 19:19] VITALS: BP 127/72
--- NOTE | 2023-01-29 04:15 | NUR ---
SHIFT SUMMARY PT HAS BEEN ASLEEP MUCH OF THE SHIFT. PT CONTINUES TO BE IN A JENNIFER VEST. PT HAS CALL LIGHT WITHIN HIS REACH.
[2023-01-29 05:06] VITALS: BP 123/67
[2023-01-29 07:01] LABS: BASOPHILS ABSOLUTE AUTO 0.07 K/mm3 (0.00-0.23); BASOPHILS PERCENT AUTO 1 % (0-2); EOSINOPHILS ABSOLUTE AUTO 0.37 K/mm3 (0.00-0.68); EOSINOPHILS PERCENT AUTO 3 % (0-6); Hemoglobin 14.4 g/dL (13.5-17.5); IMMATURE GRAN ABSOLUTE AUTO 0.04 K/mm3 (0.00-0.10); IMMATURE GRAN PERCENT AUTO 0 % (0-1); LYMPHOCYTES ABSOLUTE AUTO 1.94 K/mm3 (0.84-5.20); LYMPHOCYTES PERCENT AUTO 17 % (21-46); MONOCYTES ABSOLUTE AUTO 1.13 K/mm3 (0.16-1.47); MONOCYTES PERCENT AUTO 10 % (4-13); Mean Corpuscular HGB 29.4 pg (26.0-34.0); Mean Corpuscular HGB Conc 34.3 g/dL (31.5-36.5); Mean Corpuscular Volume 86 fL (80-100); Mean Platelet Volume 8.7 fL (9.1-12.4); NEUTROPHILS ABSOLUTE AUTO 8.09 K/mm3 (1.96-9.15); NEUTROPHILS PERCENT AUTO 70 % (41-73); Platelet Count 229 K/mm3 (150-400); RDW Coefficient Variation 13.1 % (11.7-14.2); RDW Standard Deviation 41.1 fL (35.1-46.3); White Blood Cell Count 11.64 K/mm3 (4.00-11.30)
[2023-01-29 07:20] LABS: Albumin, Blood 2.4 g/dL (3.4-5.0); Albumin/Globulin Ratio 0.8 (0.8-1.8); Bilirubin, Total 0.6 mg/dL (0.1-1.0); Bun/Creatinine Ratio 14.7 (12.0-20.0); Calcium, Blood 8.4 mg/dL (8.5-10.1); Creatinine, Blood 0.68 mg/dL (0.60-1.20); Globulin, Blood 3.1 g/dL (2.2-4.0); Potassium, Blood 3.7 mmol/L (3.5-5.5); Total Protein, Blood 5.5 g/dL (6.4-8.2)
[2023-01-29 07:50] VITALS: BP 130/67
[2023-01-29 15:05] VITALS: BP 121/60
--- NOTE | 2023-01-29 17:47 | NUR ---
SHIFT SUMMARY PATIENT IS ALERT AND ORIENTED TO SELF. PATIENT HAS BEEN IMPULSIVE BUT IS REDIRECTABLE AT TIMES. PATIENT HAS HAD NO ACUTE EVENTS THIS SHIFT. VITAL SIGNS REVIEWED. PATIENT HAS BEEN RESTING MOST OF THE SHIFT. PATIENT HAS BEEN AWAKE FOR MEDICATIONS AND SOME MEALS BUT OTHERWISE SLEEPING. BED IN LOCKED AND LOWEST POSITION. CALL LIGHT IN PLACE. WILL MONITOR UNTIL SHIFT CHANGE.
[2023-01-29 19:33] VITALS: BP 152/88
--- NOTE | 2023-01-30 04:36 | NUR ---
SHIFT SUMMARY PT CONTINUES TO BE IN RESTRAINTS (JENNIFER VEST). RENEWAL IS TODAY AT 1430. PT TOLERATING IT WELL. PT IS STILL CONFUSED AND DIFFICULT TO UNDERSTAND. PT SLEEPING OFF AND ON THROUGHOUT THE NIGHT. CALL LIGHT IS WITHIN HIS REACH. PT CONTINUES TO HAVE A MILD COUGH AND THE HEAD OF HIS BED IS LIFTED FOR COMFORT.
[2023-01-30 04:46] VITALS: BP 129/74
[2023-01-30 06:04] LABS: BASOPHILS ABSOLUTE AUTO 0.06 K/mm3 (0.00-0.23); BASOPHILS PERCENT AUTO 1 % (0-2); EOSINOPHILS ABSOLUTE AUTO 0.27 K/mm3 (0.00-0.68); EOSINOPHILS PERCENT AUTO 2 % (0-6); Hematocrit 42.7 % (37.0-53.0); Hemoglobin 14.6 g/dL (13.5-17.5); IMMATURE GRAN ABSOLUTE AUTO 0.06 K/mm3 (0.00-0.10); IMMATURE GRAN PERCENT AUTO 1 % (0-1); LYMPHOCYTES ABSOLUTE AUTO 2.02 K/mm3 (0.84-5.20); LYMPHOCYTES PERCENT AUTO 18 % (21-46); MONOCYTES ABSOLUTE AUTO 1.53 K/mm3 (0.16-1.47); MONOCYTES PERCENT AUTO 14 % (4-13); Mean Corpuscular HGB 29.3 pg (26.0-34.0); Mean Corpuscular HGB Conc 34.2 g/dL (31.5-36.5); Mean Corpuscular Volume 86 fL (80-100); Mean Platelet Volume 8.7 fL (9.1-12.4); NEUTROPHILS ABSOLUTE AUTO 7.42 K/mm3 (1.96-9.15); NEUTROPHILS PERCENT AUTO 65 % (41-73); Platelet Count 241 K/mm3 (150-400); RDW Standard Deviation 40.1 fL (35.1-46.3); Red Blood Cell Count 4.98 M/mm3 (4.30-5.90); White Blood Cell Count 11.36 K/mm3 (4.00-11.30)
[2023-01-30 06:22] LABS: Bun/Creatinine Ratio 16.9 (12.0-20.0); Calcium, Blood 8.6 mg/dL (8.5-10.1); Creatinine, Blood 0.71 mg/dL (0.60-1.20); Potassium, Blood 3.8 mmol/L (3.5-5.5)
[2023-01-30 07:40] VITALS: BP 133/78
[2023-01-30 16:28] VITALS: BP 117/95
--- NOTE | 2023-01-30 17:55 | NUR ---
PT HAS BEEN AOX2 AND COOPERATIVE OF CARE TODAY. PT CAN BE SLOW TO RESPOND, BUT IS PLEASANT TO CARE FOR. PT CONTINUES TO BE IMPULSIVE WITH POSE IN PLACE. TURNED Q2 HRS AND IS INCONTENENT OF BOWEL AND URINE. NO DIARHEA TODAY. PT DOES HAVE A COUGH SEEMED TO COME UP TOWARDS END OF SHIFT. NO CHANGES IN LUNG SOUNDS. FAMILY CAME TO VISIT AND DR AGUILAR NOTIFIED OF FAMILY WANTING UP DATE. TECHNICAL PUBLICATIONS WRITER REPORT PT CONVERTING TO AFIB RVR AND MAINTAINED THIS FOR AN HOUR. DR AGUILAR ORDERED MED TO [facility] AND WHEN TELE WAS CALLED PRIOR TO ADMINISTRATION OF MED PT'S HR HAD CONVERTED BACK TO NS RHTYM @ 73 PER TECHNICAL PUBLICATIONS WRITER. MED WAS NOT ADMINISTERED. WILL HOLD MED AT THIS TIME IN THE EVENT PT GOES INTO AFIB PRIOR TO SHIFT ENDING. WILL CONTINUT EO MONITOR.
[2023-01-30 19:48] VITALS: BP 131/71
[2023-01-31 04:02] VITALS: BP 122/61
--- NOTE | 2023-01-31 06:15 | NUR ---
SHIFT SUMMARY PT CONTINUESTO BE IN A JENNIFER VEST. RENEWAL IS DUE TODAY AT 1430. PT COOPERATIVE AND PLEASANTLY CONFUSED. PT DID HAVE TWO BM'S THIS SHIFT, SOFT AND BROWN. PT INCONTINENT OF URINE. PT GIVEN SNACK OF APPLESAUCE AT BEGINNING OF THE SHIFT, FOR WHICH HE WAS VERY THANKFUL. PT CONTINUES TO WEAR TELE, BATTERIES REPLACED THIS AM. CALL LIGHT IS WITHIN REACH.
[2023-01-31 06:22] LABS: BASOPHILS ABSOLUTE AUTO 0.07 K/mm3 (0.00-0.23); BASOPHILS PERCENT AUTO 1 % (0-2); EOSINOPHILS ABSOLUTE AUTO 0.33 K/mm3 (0.00-0.68); EOSINOPHILS PERCENT AUTO 4 % (0-6); Hematocrit 41.9 % (37.0-53.0); Hemoglobin 14.3 g/dL (13.5-17.5); IMMATURE GRAN ABSOLUTE AUTO 0.05 K/mm3 (0.00-0.10); IMMATURE GRAN PERCENT AUTO 1 % (0-1); LYMPHOCYTES ABSOLUTE AUTO 2.07 K/mm3 (0.84-5.20); LYMPHOCYTES PERCENT AUTO 24 % (21-46); MONOCYTES ABSOLUTE AUTO 1.47 K/mm3 (0.16-1.47); MONOCYTES PERCENT AUTO 17 % (4-13); Mean Corpuscular HGB 29.2 pg (26.0-34.0); Mean Corpuscular HGB Conc 34.1 g/dL (31.5-36.5); Mean Corpuscular Volume 86 fL (80-100); Mean Platelet Volume 8.7 fL (9.1-12.4); NEUTROPHILS ABSOLUTE AUTO 4.56 K/mm3 (1.96-9.15); NEUTROPHILS PERCENT AUTO 53 % (41-73); Platelet Count 266 K/mm3 (150-400); RDW Coefficient Variation 13.1 % (11.7-14.2); RDW Standard Deviation 40.9 fL (35.1-46.3); Red Blood Cell Count 4.89 M/mm3 (4.30-5.90); White Blood Cell Count 8.55 K/mm3 (4.00-11.30)
[2023-01-31 06:53] LABS: Bun/Creatinine Ratio 19.6 (12.0-20.0); Calcium, Blood 8.7 mg/dL (8.5-10.1); Creatinine, Blood 0.61 mg/dL (0.60-1.20); Potassium, Blood 3.8 mmol/L (3.5-5.5)
[2023-01-31 07:46] VITALS: BP 123/79
[2023-01-31 15:35] VITALS: BP 153/95
--- NOTE | 2023-01-31 18:30 | NUR ---
SHIFT SUMMARY Pt remains alert to self, pleasantly confused. Matt smart dc'cally at noon. Pt has been compliant until 1814 when attempted to get back to bed. GOLD MINER BLASTING at bedside, leaned over the bed. No injury noted. Pt reminded to only get up with ast. Bed alarm on. Spoke with who verbalized concerns of getting oob and working with PT. Assured her PT is ordered and working with pt. Pt able to feed self when up in chair.
[2023-02-01 05:12] VITALS: BP 147/74
--- NOTE | 2023-02-01 05:14 | NUR ---
SHIFT SUMMARY PT HAS BEEN ASLEEP MUCH OF THE NIGHT. PT HAS MADE NO ATTEMPTS TO CLIMB OUT OF BED THIS SHIFT AND HAS NOT SET OFF HIS BED ALARM. PT CONTINUES TO BE OUT OF JENNIFER VEST. CALL LIGHT WITHIN HIS REACH.
[2023-02-01 09:55] VITALS: BP 150/89
[2023-02-01 16:53] VITALS: BP 129/70
--- NOTE | 2023-02-01 17:46 | NUR ---
SHIFT SUMMARY PT TRANSFERING FROM BED TO CHAIR WITH 2P ASSIST. PT HAS DIFFICULTY FOLLOWING DIRECTION. VERY PLEASANTLY CONFUSED. LOOSE STOOLS CONTINUED TODAY. FAMILY UPDATED ON PLAN OF CARE TODAY. PT WORKED WITH PHYSICAL THERAPY. REFUSED OCCUPATIONAL THERAPY. DENIES OTHER NEEDS AT THIS TIME. CALL LIGHT IN REACH. VS REVIEWED.
[2023-02-01 19:48] VITALS: BP 128/85
[2023-02-02 03:01] VITALS: BP 123/74
--- NOTE | 2023-02-02 06:41 | NUR ---
SHIFT SUMMARY: PT IS ADMITTED FOR ACUTE METABOLIC ENCEPHALOPATHY AND IS A DNR. IS ALERT AND ABLE TO MAKE SOME NEEDS KNOWN. SEEMS TO BE ONLY ALERT TO SELF. ADLs ARE 1-2P DEPENDING ON ACTIVITY. ON CONTACT PRECAUTIONS FOR NOROVIRUS. DENIES PAIN OR DISCOMFORT WHEN ASKED. TELLY REPORT SINUS @ 75. HE WAS IN RECLINING CHAIR THROUGH MOST OF THE SHIFT.
[2023-02-02 07:30] VITALS: BP 121/72
--- NOTE | 2023-02-02 17:21 | NUR ---
SHIFT SUMMARY- PT IS ALERT, PLESANT AND COOPERATVE. HE IS AMBULATING TO THE RESTROOM WITH 2 ASSISTANCE FOR REDIRECTION. HIS FAMILY WAS AT BEDSIDE THIS SHIFT. HE IS EATING AND DRINKING WELL. WAS UP TO THE CHAIR FOR MOST OF THIS SHIFT. CALL LIGHT IS WITHIN REACH.
[2023-02-02 19:52] VITALS: BP 149/82
[2023-02-03 02:29] VITALS: BP 90/62
--- NOTE | 2023-02-03 06:29 | NUR ---
SHIFT SUMMARY: PT IS ADMITTED FOR ACUTE METABOLIC ENCEPHALOPATHY AND IS A DNR. IS ALERT AND ABLE TO MAKE SOME NEEDS KNOWN. SEEMS TO BE ONLY ALERT TO SELF. ADLs ARE 1-2P DEPENDING ON ACTIVITY. ON CONTACT PRECAUTIONS FOR NOROVIRUS. DENIES PAIN OR DISCOMFORT WHEN ASKED. TELLY REPORT SINUS @ 69. WITH TWO EVENTS OF TACH ABOUT 150.
[2023-02-03 11:50] VITALS: BP 133/102
--- NOTE | 2023-02-03 19:24 | NUR ---
SHIFT SUMMARY: PT A/O X 1 STANDBY ASSIST WITH GB/WALKER. PLEASANT AND COOPERATIVE WITH CARE. PT EATING WELL. PT AMBULATED WITH THIS RN THE HALLS UP AND DOWN APPROX 400 FT AND TOLERATED WELL. PT DID NEED CONSTANT VERBAL DIRECTION. STEADY ON FEET. PT CONTINENT THROUGHOUT DAY AND HAD LARGE FORMED BM AFTER ANBULATING HALLS.
[2023-02-03 20:51] VITALS: BP 128/74
[2023-02-04 04:07] VITALS: BP 116/85
--- NOTE | 2023-02-04 05:23 | NUR ---
SHIFT SUMMARY 87 YR M ADMITTED ON 01/26/23 FOR ACUTE METABOLIC ENCEPHALOPATHY. DNR. NO ACUTE CHANGES THIS SHIFT. PT IS PLEASANTLY CONFUSED AND REQUIRES ALOT OF REDIRECTION, ESPECIALLY WHEN AMBULATING. HE HAS BEEN CONT/INCONT THIS SHIFT. HE SAT UP IN THE CHAIR FOR MOST OF THE EVENING WATCHING TV. NO C/O PAIN OR DISCOMFORT THIS SHIFT.
[2023-02-04 07:37] VITALS: BP 123/68
[2023-02-04 15:58] VITALS: BP 131/65
--- NOTE | 2023-02-04 17:35 | NUR ---
SHIFT SUMMARY: PT A/O X 2, ONE ASSIST WITH GB/WALKER, PLEASANT AND COOPERATIVE. PT HAD NO COMPLAINTS THROUGHOUT THE DAY. NO EPISODES OF DIARRHEA, STOOL FORMED WITH BM. PT HAS GOOD APPETITE, ABLE TO MAKE NEEDS KNOWN.
[2023-02-04 19:58] VITALS: BP 116/65
[2023-02-05 02:31] VITALS: BP 136/78
[2023-02-05 08:08] VITALS: BP 128/83
[2023-02-05 15:58] VITALS: BP 146/87
--- NOTE | 2023-02-05 17:04 | NUR ---
SHIFT SUMMARY: PATIENT A/O TO SELF, PLACED, PLEASANTLY CONFUSED AND ABLE TO FOLLOW SIMPLE COMMAND. PATIENT DENIES CP/PRESSURE, N/V, SOB AND DIZZINESS. PATIENT STILL ON TELE, SR HR IN THE 80'S BPM c OCCASIONAL PVC/PAC AND BBB PER FREEZER UNLOADER. PATIENT RECEIVED SHOWER AND LINEN CHANGED THIS SHIFT. PATIENT IS CONTINENCE/INCONTINENCE OF BOWELS/BLADDER, MIKHAIL CARE AND ATTENDS CHANGED T/O SHIFT. PATIENT AMBULATES TO BATHROOM c 1 ASSIST, GAITBELT AND FWW. PATIENT HAD 3 FORM/SOFT, BROWN BM THIS SHIFT. PATIENT RECEIVED SCHEDULED MEDS PER EMAR. VITAL SIGNS REVIEWED. PIV TO R FOREARM SALINE LOCKED, DRESSING C/D/I. BED/CHAIR ALARM ON FOR SAFETY. CALL LIGHT IN REACH.
[2023-02-05 19:29] VITALS: BP 120/88
[2023-02-06 02:58] VITALS: BP 146/77
--- NOTE | 2023-02-06 05:45 | NUR ---
SHIFT SUMMARY PT PLEASANTLY CONFUSED, FREQUENTLY CALLS OUT TO USE URINAL. 1-2 PERSON ASSIST WTIH FWW/GAIT BELT TO COMMODE, REQUIRES A LOT OF VERAL CUES. OCCASIONALLY INCONTINENT, ATTENDS IN PLACE AND CHANGED PRN. CALL LIGHT IN REACH, BED LOCKED IN LOW POSITION, NONSKID SOCKS ON, BED ALARM ON. SHIFT UNREMARKABLE, PT ABLE TO FALL BACK ASLEEP AFTER EACH VOID. NO BM OVERNIGHT
[2023-02-06 08:36] VITALS: BP 123/94
[2023-02-06 15:26] VITALS: BP 141/81
--- NOTE | 2023-02-06 16:51 | NUR ---
SHIFT SUMMARY: PATIENT A/O TO SELF, PLACED, PLEASANTLY CONFUSED AND LOTS OF CUING c AMBULATIONS. PATIENT IS CONT/INCON OF BOWELS/BLADDER, USES URINAL c ASSISTANCE AND AMBULATES TO BATHROOM c 1 ASSIST, GAITBELT AND FWW. PATIENT HAD 1 SOFT, BROWN, MEDIUM BM THIS SHIFT. PATIENT WAS UP IN THE RECLINER CHAIR FOR BREAKFAST, LUNCH AND DINNER, EXCELLENT APPETITE. PATIENT RECEIVED SCHEDULED MEDS PER EM[facility], VITAL SIGNS REVIEWED. PIV TO R FOREARM SALINE LOCKED. POSSIBLE DC'D TO ASSISTED LIVING FACILITY ON TUESDAY PER DR. CHAPMAN. BED/CHAIR ALARM ON FOR SAFETY. CALL LIGHT IN REACH.
[2023-02-06 19:34] VITALS: BP 143/104
--- NOTE | 2023-02-07 04:49 | NUR ---
SHIFT SUMMARY PT ALERT AND ORIENTED TO SELF AND PLACE. PT PLEASANTLY CONFUSED AND REQUIRES FREQUENT CUING DURING CARE. CONDOM CATHETER IN PLACE TO INCREASE COMFORT, PROMOTE UNINTERUPTED REST, AND REDUCE THE RISK OF SKIN BREAKDOWN. VSS. NO ACUTE EVENTS DURING SHIFT. PT KEPT IN A POSITION OF SAFETY WITH FALL PRECAUTIONS IN PLACE AND CALL LIGHT IN REACH.
[2023-02-07 05:02] VITALS: BP 116/67
[2023-02-07 08:43] VITALS: BP 124/80
[2023-02-07] MEDS ORDERED: BANATROL PLUS1 EAC1 PO (15:07)
[2023-02-07] MEDS ORDERED: QUET25 PO (15:07)
--- NOTE | 2023-02-07 16:14 | NUR ---
DISCHARGE NOTE: PATIENT'S BELONGINGS COLLECTED AND DISCHARGE PAPERWORKS PUT IN PATIENT'S BELONGINGS BAG TO TAKE HOME. HIS IV WAS REMOVED AND PATIENT SHOWERED AND DRESSED. MEDICAL TRANSPORT ARRIVED AND TRANSPORTED PATIENT VIA WHEELCHAIR. NO SIGNS OR SYMPTOMS OF DISTRESS DURING DISCHARGE.
== END 2023-02-07 16:00 | disposition home health service (06) | DRG 871 ==
LOC: ER 03:55 → MEDS 03:56
PROVIDERS: Emergency Medicine; ADMIT Internal Medicine
DX: A41.9 Sepsis, unspecified organism (principal); G93.41 Metabolic encephalopathy; K92.1 Melena; A08.11 Acute gastroenteropathy due to Norwalk agent; F05 Delirium due to known physiological condition; J98.11 Atelectasis; Z66 Do not resuscitate; G30.9 Alzheimer's disease, unspecified; F02.80 Dementia in other diseases classified elsewhere, unspecified severity, without behavioral disturbance, psychotic disturbance, mood disturbance, and anxiety; N40.0 Benign prostatic hyperplasia without lower urinary tract symptoms; I50.9 Heart failure, unspecified; J44.9 Chronic obstructive pulmonary disease, unspecified; R65.20 Severe sepsis without septic shock; E86.0 Dehydration; E78.5 Hyperlipidemia, unspecified; E03.9 Hypothyroidism, unspecified; I25.2 Old myocardial infarction; Z79.899 Other long term (current) drug therapy; Z79.82 Long term (current) use of aspirin; Z79.890 Hormone replacement therapy; Z98.890 Other specified postprocedural states; Z11.52 Encounter for screening for COVID-19
CPT/HCPCS: 0241U; 36415; 51701; 71045; 74177; 80048; 80053; 81001; 82272; 82947; 83605; 84443; 85014; 85018; 85025; 87040; 87086; 87507; 92526; 92610; 93005; 93010; 96361; 96365; 96366; 96367; 96375; 97110; 97110-CQ; 97116; 97116-CQ; 97162; 97165; 97530; 97535; 99285-25; A9270; G0378; J0456; J0696; J7030; J7042; J7050; Q9967